=== PATIENT | male | born 1985 | race Caucasian/White ===

== ENCOUNTER 2017-09-29 15:03 | Emergency (ER) | payer OTHER ==
[~2017-09-29] VITALS: Ht 167.6 cm; Wt 57.0 kg
[2017-09-29 15:05] VITALS: BP 143/70; PULSE 91; RESP 22; TEMP 99.2; O2SAT 97
[2017-09-29] MEDS ORDERED: LIDOCAINE HCL 1% 10 ML VIAL INFIL ONE (15:15)
[2017-09-29] MEDS ORDERED: LIDOCAINE HCL 1% 20 ML VIAL INFIL ONE (15:30)
--- NOTE | 2017-09-29 15:51 | PD ---
HPI . Foreign body Chief Complaint: Foreign Body Time Seen by Provider: 15:10 Travel History International Travel<30 days: No Contact w/Intl Traveler<30days: No Traveled to known affect area: No History of Present Illness HPI This patient presents with the chief complaint of a nail in his left index finger. This occurred just prior to arrival. Tetanus is up-to-date. He has very little pain with the injury. [facility] Social History Tobacco Use: No Allergies-Medications (Allergen,Severity, Reaction): Coded Allergies: ibuprofen (Unverified Allergy, Severe, 09/29/17) all nsaids penicillin G (Unverified Allergy, Severe, 09/29/17) Review of Systems Except as stated in HPI: all other systems reviewed are Neg Physical Exam Narrative GENERAL: Awake and alert and in no acute distress. SKIN: Warm and dry. Normal color and turgor. He has a nail through his left index finger. HEAD: Normocephalic/atraumatic. EYES: Pupils are equal. Extraocular movements are intact. NECK: Normal range of motion. Supple. CARDIOVASCULAR: Regular rate and rhythm. RESPIRATORY: Nonlabored respirations. Normal sats. MUSCULOSKELETAL: Atraumatic. Normal muscle tone. NEUROLOGICAL: A and O 3. Nonfocal. PSYCHIATRIC: Appropriate mood and affect. Data Data Last Documented VS Vital Signs Date Time Temp Pulse Resp B/P (MAP) Pulse Ox O2 Delivery O2 Flow Rate FiO2 09/29/17 15:05 99.2 91 22 143/70 (94) 97 Orders Orders Lidocaine 1% Inj (Xylocaine 1% Inj) (09/29/17 15:15) Lidocaine 1% Inj (Xylocaine 1% Inj) (09/29/17 15:30) [facility] Medical Decision Making Medical Screen Exam Complete: Yes Emergency Medical Condition: Yes Differential Diagnosis Differential diagnosis includes but is not limited to simple foreign body, foreign body with wound infection, foreign body with cellulitis, foreign body with neurovascular compromise. Narrative Course This patient presents with a nail in his left index finger. A digital block was done and the nail was removed. He will be discharged with instructions to return if he develops any signs or symptoms of infection. Procedures Procedure Narrative DIGITAL BLOCK: Following verbal consent, identification of the correct patient and identification of correct site, the skin was prepped with alcohol. A digital block was done using a total of 10 cc of 1% plain lidocaine. The patient tolerated procedure well without complication. Adequate anesthesia was obtained. I was then able to easily remove the nail from his finger. The nail did not go through bone. Diagnosis Primary Impression: Foreign body (FB) in soft tissue Patient Instructions: General Instructions Departure Forms: Tests/Procedures Additional Instructions: Wash twice daily with soap and water. Return for any signs of infection such as redness, pus, increased pain. Disposition: 01 DISCHARGE HOME Condition: Stable Araseli Hendricks MD Sep 29, 2017 15:51
== END 2017-09-29 16:08 | disposition home or self-care (01) ==
LOC: NEPD 15:03
DX: S61.241A Puncture wound with foreign body of left index finger without damage to nail, initial encounter (principal); W45.0XXA Nail entering through skin, initial encounter; Z88.0 Allergy status to penicillin; Z88.6 Allergy status to analgesic agent
CPT/HCPCS: 10120